=== PATIENT | female | born 1960 | race Hispanic/Latino ===

== ENCOUNTER → 2017-10-11 | Outpatient (CLI) | payer MEDICARE ==
--- NOTE | 2017-10-11 10:57 | XRay Report ---
RIGHT SHOULDER RADIOGRAPHS INDICATION: Right shoulder pain. COMPARISON: None similar in this institution. FINDINGS: Frontal and Y views of the right shoulder, 3 projections demonstrate normal humeral head contour, well positioned against the glenoid. Intact AC joint with slight acromial spurring superiorly. Preserved scapular contour. Normal visualized soft tissues, right ribs and lung. Aortic knob calcifications. Lower cervical spondylosis. CONCLUSION: No acute right shoulder radiographic abnormality with few degenerative changes noted, as described. Thank you for the opportunity to participate in this patient's care.
== END | disposition home or self-care (01) ==
LOC: XRAY 09:51
PROVIDERS: ATTEND Nurse Practitioner
DX: M19.011 Primary osteoarthritis, right shoulder (principal); M47.892 Other spondylosis, cervical region; Z88.0 Allergy status to penicillin; Z88.2 Allergy status to sulfonamides